=== PATIENT | male | born 1950 | race Caucasian/White ===

== ENCOUNTER → 2019-05-25 | Outpatient (CLI) | payer MEDICARE, OTHER ==
--- NOTE | 2019-05-25 14:03 | RAD ---
LEFT LEG VENOUS DOPPLER STUDY: Clinical indications: Left leg swelling and pain. Findings: Duplex sonography (including kiser scale evaluation and color flow and waveform spectral analysis) of the proximal aspect of the greater saphenous vein and the proximal aspect of the profunda femoral vein and the entire length of the common femoral and superficial femoral and popliteal veins and the tibioperoneal trunk and the proximal aspect of the posterior tibial and peroneal veins of the left leg was performed. Normal compressibility, augmentation of color Doppler flow after calf compression, and respiratory variation of Doppler flow is seen. Thus, there are no sonographic findings of deep venous thrombosis within these veins. Impression: There are no sonographic findings of deep venous thrombosis within the veins discussed above of the left lower extremity. Electronically signed by: Moises Dumont MD (05/25/2019 2:00 PM) [facility]
== END | disposition home or self-care (01) ==
LOC: US 11:04
PROVIDERS: ATTEND Physician Assistant
DX: R60.0 Localized edema (principal)
CPT/HCPCS: 93971

== ENCOUNTER → 2020-03-13 | Outpatient (CLI) | payer MEDICARE, OTHER ==
--- NOTE | 2020-03-13 10:27 | RAD ---
EXAM: Abdomen sonogram. HISTORY: Elevated liver function laboratory values. TECHNIQUE: Sonographic imaging of the abdomen was performed. COMPARISON: CT dated 02/01/2020. FINDINGS: The liver is normal in size. There is hepatic steatosis. No focal hepatic lesion is seen. There is cholelithiasis and gallbladder sludge. There is no superimposed cholecystitis. The kidneys are enlarged and contains multiple simple appearing cysts. The largest cyst on the right measures 9.6 cm and the largest cyst on the left measures 4.8 cm. No convincing solid renal lesion is seen. The spleen is normal in size. The pancreas, aorta and inferior vena cava are unremarkable. The common bile duct is normal in caliber. IMPRESSION: 1. Hepatic steatosis. 2. Cholelithiasis and gallbladder sludge. 3. Multiple simple appearing renal cysts, the largest of which measures 9.6 cm on the right. Follow-up is not routinely recommended for simple renal cysts. Electronically signed by: Zenia Valdivia MD (03/13/2020 10:24 AM) [facility]
== END ==
LOC: US 07:48
PROVIDERS: ATTEND Internal Medicine Gastroenterology
DX: K76.0 Fatty (change of) liver, not elsewhere classified (principal); K80.20 Calculus of gallbladder without cholecystitis without obstruction; N28.1 Cyst of kidney, acquired; N28.81 Hypertrophy of kidney
CPT/HCPCS: 76700

== ENCOUNTER → 2020-08-24 | Outpatient (CLI) | payer MEDICARE, OTHER ==
[2020-08-24 14:23] LABS: BASO % 0 % (0-3); EOS % 0 % (0-3); HEMATOCRIT 40.4 % (39.0-53.0); HEMOGLOBIN 13.8 g/dL (13.0-17.5); LYMPH # 1.1 x10^3/uL (1.0-4.8); LYMPH % 10 % (24-48); MEAN CORPUSCULAR HEMOGLOBIN 33 pg (25-35); MEAN CORPUSCULAR HGB CONC 34 g/dL (31-37); MEAN CORPUSCULAR VOLUME 95 fL (79-100); MONO # 0.7 x10^3/uL (0.0-1.1); MONO % 7 % (0-9); NEUT % 83 % (31-73); PLATELET COUNT 242 x10^3/uL (140-400); RED BLOOD COUNT 4.24 x10^6/uL (4.30-5.70); RED CELL DISTRIBUTION WIDTH 13.8 % (11.5-14.5); WHITE BLOOD COUNT 10.8 x10^3/uL (4.0-11.0)
[2020-08-24 14:28] LABS: ALBUMIN 3.9 g/dL (3.4-5.0); CALCIUM 9.2 mg/dL (8.5-10.1); CREATININE 1.1 mg/dL (0.7-1.3); POTASSIUM 4.9 mmol/L (3.5-5.1); TOTAL BILIRUBIN 0.9 mg/dL (0.2-1.0)
[2020-08-24 15:44] LABS: SEDIMENTATION RATE 13 (0-15)
[2020-08-25 02:12] LABS: RHEUMATOID FACTOR <10.0 IU/mL (0.0-13.9)
[2020-08-25 20:11] LABS: ANA INTERP Negative (.)
== END ==
LOC: LAB 13:25
PROVIDERS: ATTEND Internal Medicine Rheumatology
DX: M19.91 Primary osteoarthritis, unspecified site (principal); M35.3 Polymyalgia rheumatica; Z79.52 Long term (current) use of systemic steroids
CPT/HCPCS: 36415; 80053; 85025; 85651; 86038; 86140; 86431

== ENCOUNTER → 2021-01-19 | Outpatient (CLI) | payer MEDICARE, OTHER ==
--- NOTE | 2021-01-19 13:12 | RAD ---
EXAM: Chest and right ribs, 4 views. HISTORY: Pain. Fall. COMPARISON: None. FINDINGS: A frontal view of the chest and 3 views of the right ribs are obtained. There is elevation of the right hemidiaphragm with suspected right basilar compressive atelectasis. There is no infiltra te, pleural effusion or pneumothorax. The heart is normal in size. There are cardiac pacemaker leads in expected position. There are mildly displaced fractures involving the lateral right sixth and like ly fifth ribs. IMPRESSION: 1. Mildly displaced right sixth and likely right fifth rib fractures. 2. Elevation of the right hemidiaphragm with right basilar compressive atelectasis. Electronically signed by: Zenia Valdivia MD (01/19/2021 1:10 PM) [id number]
== END ==
LOC: RAD 12:49
PROVIDERS: ATTEND Specialist
DX: R07.81 Pleurodynia (principal); J98.11 Atelectasis
CPT/HCPCS: 71101